=== PATIENT | male | born 1950 | race Caucasian/White ===

== ENCOUNTER → 2019-12-09 | Outpatient (CLI) | payer OTHER ==
[~2019-12-09] VITALS: Ht 182.9 cm; Wt 108.9 kg
[~2019-12-09] MED LIST: ALEVE220 M1 PO; AMANTADINE100 M1 PO; ASPIR 8181 M1 PO; B12INJ IM; BENEFIBER1 EAC1 PO; CIALIS5 MG PO; CLONAZEPAM 0.50.5 M1 PO; COENZYME Q10100 MG PO; CRANBERRY PO; FLAX SEED OIL1000 MG PO; FLOMAX0.4 MG PO; FOLIC ACID PO; GAVISCON EXTRA355 ML PO; OMEGA 3-6-9 11200 M1 PO; REFRESH TEARS15 ML OPHTHALMIC; TIZANIDINE HCL2 M1 PO; VITAMIN D PO; VITAMIN E PO; [UNRECOGNIZED DRUG - OTHER] PO
--- NOTE | ~2019-12-09 | HPC ---
[facility] [place] [address] PAIN MANAGEMENT CONSULTATION Name: SHOBHA HIGGINS Room #: REG [facility] JosephineWillEmerita.#: [id number] Admission: 12/09/19 Attend Phys: Vasiliy Odonnell MD Discharge: Date of : 50 Report #: [id number] THIS REPORT FOR: cc: RAHUL BOLES MD Physician not on staff Vasiliy Odonnell MD ~ CC: RAHUL Mendoza M.D. Physician staff Vasiliy Odonnell DATE OF SERVICE: 12/09/2019 PAIN CONSULTATION CHIEF COMPLAINT: Severe left-sided headache, bilateral body aches and cramps, bilateral flank pain and bilateral anterior thigh pain. I am seeing the patient today at the request of Griselda Miles APRN, specifically to address left-sided headaches. He has localized tenderness and discomfort, possibly related to facet arthropathy noted on MRI. He has significant degenerative disk disease throughout his cervical spine, but there is a significant concordant neuroforaminal compromise at C2-C3 on the left, which may involve the occipital third nerve as well as the C2-C3 facet with referred pain. An injection may provide both diagnostic and therapeutic benefit there. It should be noted that he has already seen Dr. Jami Mendoza, in the midst of a Botox treatment. He has had one treatment with modest improvement and is schedule to repeat the treatments soon. Any injections would be withheld until the conclusion of his treatment with Dr. Mendoza. The patient has a very complex history with multisystem atrophy. 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 It has since been reclassified several times for patients with a more specific diagnostic criteria. 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 For the purposes of pain relief, this diagnosis, I believe is unnecessary. He is here for me to help him feel better. In his own words, he describes his pain as an intense digging pain that moves [facility] [address] [place] [address] PAIN MANAGEMENT CONSULTATION Name: SHOBHA HIGGINS Room #: REG [facility].#: [id number] Admission: 12/09/19 Attend Phys: Vasiliy Odonnell MD Discharge: Date of : 50 Report #: [id number] from his neck up the brainstem to the left side of his head. Sometimes it is sharp, sometimes pounding. It is worsened with stress, exertion and he finds that weather fronts also make his pain worse. He gets some relief with smoking a cigarette and drinking a cup of coffee!. He also uses Aleve. He takes them one right after another and he says it brings modest relief to his intense pain which he scores in the 8-10 range on the intensity scale. Medication trials have included Aleve and benzodiazepines. 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 [place] was also [place] where [place] was utilized. We did not discuss the correlation between his findings and his exposure to Agent Hodgeman. He has tried a few muscle relaxants and is currently on tizanidine 2 mg at bedtime, 1 in the morning. Clonazepam taken once b.i.d. helps a bit with anxiety. He has PTSD. Other medicines include amantadine, tamsulosin, Cialis, folic acid, vitamins, omega 3, cranberry, CoQ10, Benefiber, aspirin, Gaviscon. Dr. Al placed intrathecal pump over 10 years ago and it has been managed by Dr. Alana Andrade at [facility] and [facility] in [place], [place]. The patient lives in [place], [place] about 35 miles from [place]. The baclofen helps somewhat with his spasticity and rigidity. He has never had any combination therapies provided through his intrathecal pump. ALLERGIES: None listed. PAST MEDICAL HISTORY: 1. Hypertension. 2. Aortic valve murmur and pacemaker for sick sinus syndrome. 3. History of cholecystectomy. 4. Diagnosed with PTSD following the [place] War and continues to suffer symptoms. 5. Degenerative osteoarthritis. PAST SURGICAL HISTORY: He has had 10 total knee surgeries, both knees now replaced. He has had cataracts, tonsillectomy, cholecystectomy, pacemaker placement, appendectomy. He is on his second intrathecal pump. SOCIAL HISTORY: He is , lives in [place], [place]. Smokes 3 cigarettes a day. Denies use of alcohol or any other illicit drugs. He is retired former . He was airborne, paratrooper, also drove a tank. He attributes some of his cervical issues and other skeletal problems to his time in the service, jumping out of airplanes. REVIEW OF SYSTEMS: Markedly positive. Over half of the questions were answered [facility] [address] [place] [address] PAIN MANAGEMENT CONSULTATION Name: SHOBHA HIGGINS Room #: REG [facility] Call#: [id number] Admission: 12/09/19 Attend Phys: Vasiliy Odonnell MD Discharge: Date of : 50 Report #: [id number] in the affirmative, please refer to the record. He complains of multiple symptoms and literally has some complaint in every organ system, ear, nose, and throat; cardiovascular; respiratory; gastrointestinal; genitourinary; musculoskeletal; psychiatric; endocrine and hematologic. PHYSICAL EXAMINATION: GENERAL: He is wearing a mask due to COVID restrictions: He is pleasant. Affect is a bit flat. VITAL SIGNS: Blood pressure is 152/66, heart rate 70, respirations 16, O2 sat 96% on room air. HEENT: Pupils are equal, round, reactive to light. EOMs are intact. NECK: Limited in range of motion, particularly with rotation and lateral tilt and neck extension. He has pain throughout his neck, but his most significant pain is on the left and would correspond to the left C2-C3 facet joint, which shows severe degenerative changes on the MRI. Pain radiates with palpation there causing pain in the distribution of the C3 nerve. CHEST: Clear to auscultation. CARDIAC: Rhythm is regular, but there is a grade 2-3/6 systolic murmur at the left sternal border. ABDOMEN: Soft. MUSCULOSKELETAL: He is able to move independently from sitting to standing position, but his gait is stiff and antalgic. He has some atrophy in the right hand. He has generalized weakness. He has decreased sensation in the lower extremities below the knees. Some rigidity with straight leg raising bilaterally. Tenderness bilaterally in the hips and knees. IMPRESSION: 1. Multisystem atrophy. He is being followed by Neurology for this complex diagnosis. 2. 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 3. Marked cervical spondylosis, worst on the left at C2-C3 where he is markedly symptomatic with C3 radicular symptoms. 4. Posttraumatic stress disorder following [place] War. 5. Chronic migraine. PAIN RECOMMENDATION: 1. If the treatment of his left-sided occipital pain is unsuccessful with his ongoing Botox injections being performed by Dr. Mendoza, I would recommend a C2-C3 facet injection, which would also correspondingly anesthetize the C3 occipital nerve. We have had some success providing temporary relief for others. I would measure this in months. 2. I briefly discussed with him the possibility of adding additional medicine to his intrathecal therapy. He does not necessarily want to drive all the way to [place] to have his pump filled and I am not sure that his team in [place] is comfortable with a compound therapy within the intrathecal pump. Use of these medicines is often off label, but the majority of our pump patients have [facility] [address] [place] [address] PAIN MANAGEMENT CONSULTATION Name: SHOBHA HIGGINS Room #: REG [facility] [place]#: [id number] Admission: 12/09/19 Attend Phys: Vasiliy Odonnell MD Discharge: Date of : 50 Report #: [id number] additions of opioid, clonidine or baclofen along with bupivacaine. For symptom management, it is certainly a consideration to reduce pain. I would be willing to discuss this with him further and make some recommendations. Followup visit is scheduled for injection at the conclusion of his Botox and if he is doing well, he will cancel. By: [id number] Vasiliy Odonnell MD /sunita
[2019-12-09 12:54] VITALS: BP 152/66
--- NOTE | 2019-12-09 13:34 | NUR ---
Pain Clinic Assessment: 1. History of Osteoarthritis: Left Lower Extremity Right Lower Extremity History of Rheumatoid Arthritis: Not Applicable 2. Height: 6 ft. 0 in. 182.9 cm. Weight: 240.0 lb. oz. 108.864 kg. Patient's BMI: 32.5 3. Vital Signs: BP: 152/66 Pulse: 70 Resp: 16 Temp: 02 Sat: 96 ECG Mon: 4. Pain Intensity: 5-8 5. Fall Risk: Dizziness: Y Needs help standing or walking: Y Fallen in the last 3 months: Y Fall risk comments: 6. Patient on Blood Thinner: None 7. History of Hypertension: Y 8. Opioid Therapy greater than 6 weeks: N Opiate Contract Signed: 9. Risk Assessment Tool Provided: 10. Functional Assessment Tool: 11. Recreational Drug Use: Never Drug Type: Tobacco Use: Current Some Day Smoker Tobacco Type: Cigarettes Amount or Packs/day: 3//DAY How Many Years: 10 Alcohol Use: Yes Frequency: Special Occasions Quant:
== END ==
LOC: PAIN 06:53
PROVIDERS: ATTEND Anesthesiology Pain Medicine
DX: M47.812 Spondylosis without myelopathy or radiculopathy, cervical region (principal); M62.58 Muscle wasting and atrophy, not elsewhere classified, other site; I10 Essential (primary) hypertension; M19.90 Unspecified osteoarthritis, unspecified site; G43.909 Migraine, unspecified, not intractable, without status migrainosus; F43.10 Post-traumatic stress disorder, unspecified; Z90.49 Acquired absence of other specified parts of digestive tract; Z79.899 Other long term (current) drug therapy; X58.XXXA Exposure to other specified factors, initial encounter; Y93.89 Activity, other specified; Y92.89 Other specified places as the place of occurrence of the external cause; Y99.8 Other external cause status